=== PATIENT | male | born 1995 | race Asian ===

== ENCOUNTER 2019-02-26 11:08 | Emergency (ER) | payer OTHER ==
[~2019-02-26] VITALS: Ht 188 cm; Wt 78.5 kg
[2019-02-26] MEDS ORDERED: SODIUM CHLORIDE 0.9% 1,000 ML IV ONE (12:38)
[2019-02-26] MEDS ORDERED: METOCLOPRAMIDE HCL 10MG/2ML VIAL IV ONE (12:45)
[2019-02-26] MEDS ORDERED: DIPHENHYDRAMINE 50MG/ML VIAL IV ONE (12:45)
[2019-02-26 13:19] LABS: HEMATOCRIT. 48.4 % (42.0-52.0); HEMOGLOBIN. 16.2 g/dL (14.0-18.0); MEAN CORPUSCULAR HEMOGLOBIN 28.3 pg (28.0-32.0); MEAN CORPUSCULAR VOLUME 84.8 fL (80.0-94.0); MEAN PLATELET VOLUME 7.6 fl (7.4-10.4); PLATELET 145 x1000/uL (130-400); RED BLOOD CELL COUNT 5.71 mill/uL (4.7-6.1); RED CELL DISTRIBUTION WIDTH 13.6 % (11.6-14.6)
[2019-02-26 13:26] LABS: CHLORIDE 106 mEq/L (98-107)
[2019-02-26 13:51] LABS: PLATELET ESTIMATE NORMAL
[2019-02-26 15:30] VITALS: BP 120/85
== END 2019-02-26 15:34 | disposition home or self-care (01) ==
LOC: ER 11:08
DX: R20.2 Paresthesia of skin (principal); F41.0 Panic disorder [episodic paroxysmal anxiety]; D72.829 Elevated white blood cell count, unspecified; I10 Essential (primary) hypertension; F12.90 Cannabis use, unspecified, uncomplicated
CPT/HCPCS: 36415; 70450; 80053; 85025; 93005; 96361; 96374; 96375; 99284; J1200; J2765; J7030; Z7610